=== PATIENT | female | born 1990 | race African-American/Black ===

== ENCOUNTER 2016-12-14 12:23 | Emergency (ER) | payer SELFPAY ==
--- NOTE | 2016-12-14 13:25 | ER Document Report ---
ED Medical Screen (RME) - General Chief Complaint: Rectal Pain Stated Complaint: STOMACH PAIN Time Seen by Provider: 12/14/16 13:19 Mode of Arrival: Ambulatory Information source: Patient Notes: 26 yo female c/o pelvic pain for 2 weeks, last week had external hemorrhoids with hard stool. This week has anal pressure with urge to have BM and can't have BM. Small bm balls last night. Eating more fast food than she used to. No vaginal discharge, dysuria, fever. LMP November 30. NKA, no meds. No surgeries. TRAVEL OUTSIDE OF THE [place] IN LAST 30 DAYS: No - Related Data Allergies/Adverse Reactions: No Known Allergies Allergy (Verified 05/11/15 09:27) Past Medical History Renal/ Medical History: Denies: Hx Peritoneal Dialysis - Immunizations Immunizations up to date: Yes Hx Diphtheria, Pertussis, Tetanus Vaccination: Yes Physical Exam - Vital signs Vitals: Temp Pulse Resp BP Pulse Ox 98.0 F 75 14 153/100 H 100 12/14/16 12:44 12/14/16 12:44 12/14/16 12:44 12/14/16 12:44 12/14/16 12:44 Course - Vital Signs Vital signs: Temp Pulse Resp BP Pulse Ox 98.0 F 75 14 153/100 H 100 12/14/16 12:44 12/14/16 12:44 12/14/16 12:44 12/14/16 12:44 12/14/16 12:44
[2016-12-14 13:48] VITALS: BP 140/98
[2016-12-14 13:55] LABS: ABSOLUTE LYMPHOCYTES (AUTO) 1.6 10^3/uL (0.5-4.7); ABSOLUTE MONOCYTES (AUTO) 0.4 10^3/uL (0.1-1.4); ABSOLUTE NEUT (AUTO) 2.6 10^3/uL (1.7-8.2); BASOPHILS % (AUTO) 0.8 % (0-2); EOSINOPHILS % (AUTO) 0.4 % (0-6); HEMATOCRIT 38.3 % (36.0-47.0); HEMOGLOBIN 12.1 g/dL (12.0-15.5); LYMPHOCYTES % (AUTO) 33.4 % (13-45); MEAN CORPUSCULAR HGB CONC 31.7 g/dL (32.0-36.0); MEAN CORPUSCULAR VOLUME 79 fl (80-97); MONOCYTES % (AUTO) 9.5 % (3-13); RED BLOOD COUNT 4.86 10^6/uL (3.72-5.28); RED CELL DISTRIBUTION WIDTH 14.3 % (11.5-14.0); SEGMENTED NEUTROPHILS % (AUTO) 55.9 % (42-78); WHITE BLOOD COUNT 4.7 10^3/uL (4.0-10.5)
[2016-12-14 13:58] LABS: APPEARANCE,URINE SLIGHTLY-CLOUDY; BILIRUBIN,URINE NEGATIVE (NEGATIVE); GLUCOSE, URINE NEGATIVE (NEGATIVE); KETONES,URINE 20 mg/dL (NEGATIVE); LEUKOCYTE ESTERASE,URINE NEGATIVE (NEGATIVE); NITRITE,URINE NEGATIVE (NEGATIVE); PROTEIN,URINE NEGATIVE (NEGATIVE); URINE SPECIFIC GRAVITY 1.026
[2016-12-14 14:14] LABS: ALANINE AMINOTRANSFERASE 25 U/L (9-52); ALBUMIN 4.5 g/dL (3.5-5.0); ALKALINE PHOSPHATASE 70 U/L (38-126); ANION GAP 12 (5-19); ASPARTATE AMINO TRANSFERASE 20 U/L (14-36); BILIRUBIN,DIRECT 0.3 mg/dL (0.0-0.4); BILIRUBIN,TOTAL 0.5 mg/dL (0.2-1.3); BLOOD UREA NITROGEN 8 mg/dL (7-20); CALCIUM 9.4 mg/dL (8.4-10.2); CARBON DIOXIDE 26 mmol/L (22-30); CHLORIDE 104 mmol/L (98-107); CREATININE RESULT 0.76 mg/dL (0.52-1.25); GLUCOSE 85 mg/dL (75-110); POTASSIUM 3.7 mmol/L (3.6-5.0); SODIUM 142.2 mmol/L (137-145); TOTAL PROTEIN 7.8 g/dL (6.3-8.2)
--- NOTE | 2016-12-14 15:09 | ER Document Report ---
ED GI/ - General Chief Complaint: Rectal Pain Stated Complaint: STOMACH PAIN Time Seen by Provider: 12/14/16 13:19 Mode of Arrival: Ambulatory Information source: Patient Notes: 26-year-old female who presents today stating around 2 weeks ago she had a "GI bug with some vomiting and diarrhea. She felt well until around 5 days ago when she started to feel some suprapubic and bilateral lower abdominal intermittent "cramping". She denies any aggravating or relieving factors. She denies any dysuria, missed menstrual periods, fevers, vomiting, or diarrhea. Patient is currently pain-free. Patient also states that she has had some "hemorrhoids" for many years since the of her child which was we exacerbated about 2 weeks ago. She denies any blood in her stool. TRAVEL OUTSIDE OF THE [place] IN LAST 30 DAYS: No - HPI Patient complains to provider of: Other - See above Onset: Other - See above Timing/Duration: Gradual Quality of pain: Achy Severity at maximum: Mild Severity in ED: None Pain Level: Denies Location: Other - See above Vaginal bleeding (Compared to normal period): None Sexual history: Active Associated symptoms: Other - See above Exacerbated by: Denies Relieved by: Denies Similar symptoms previously: No Recently seen / treated by doctor: No - Related Data Allergies/Adverse Reactions: No Known Allergies Allergy (Verified 12/14/16 13:29) Past Medical History - General Information source: Patient - Social History Smoking Status: Never Smoker Chew tobacco use (# tins/day): No Frequency of alcohol use: None Drug Abuse: None Family History: Reviewed & Not Pertinent, CVA, Malignancy Patient has suicidal ideation: No Patient has homicidal ideation: No Renal/ Medical History: Denies: Hx Peritoneal Dialysis - Immunizations Immunizations up to date: Yes Hx Diphtheria, Pertussis, Tetanus Vaccination: Yes Review of Systems - Review of Systems Constitutional: denies: Chills, Fever Respiratory: denies: Short of breath Gastrointestinal: denies: Diarrhea, Vomiting Genitourinary: denies: Dysuria Musculoskeletal: denies: Leg swelling Skin: Other - no hives. denies: Rash Neurological/Psychological: Other - no slurred speech -: Yes All other systems reviewed and negative Physical Exam - Vital signs Vitals: Temp Pulse Resp BP Pulse Ox 98.0 F 75 14 153/100 H 100 07/19/17 12:44 12/14/16 12:44 12/14/16 12:44 12/14/16 12:44 12/14/16 12:44 Notes: Reviewed vital signs and nursing note as charted by RN. CONSTITUTIONAL: Alert and oriented and responds appropriately to questions. Well -appearing; well-nourished HEAD: Normocephalic; atraumatic EYES: Sclerae non-icteric CARD: Regular rate and rhythm; no murmurs, no clicks, no rubs, no gallops; symmetric distal pulses RESP: Normal chest excursion without splinting or tachypnea; breath sounds clear and equal bilaterally; no wheezes, no rhonchi, no rales ABD/GI: Normal bowel sounds; non-distended; soft, non-tender currently to deep palpation of all 4 quadrants of the abdomen, no rebound, no guarding; no palpable organomegaly or masses GI/: Pelvic examination shows no external or internal lesions, no cervical motion tenderness, no adnexal masses or tenderness On rectal examination I do not detect any obvious thrombosed external hemorrhoids. No perirectal swelling or erythema BACK: The back appears normal and is non-tender to palpation, there is no CVA tenderness EXT: Normal ROM in all joints; non-tender to palpation; no cyanosis, no effusions, no edema SKIN: Normal color for age and race; warm; dry; good turgor; capillary refill < 2 seconds; no acute lesions noted NEURO: Moves all extremities equally; Motor and sensory function intact PSYCH: The patient's mood and manner are appropriate. Grooming and personal hygiene are appropriate. Course - Re-evaluation Re-evalutation: 12/14/16 15:08 Given the above history and physical examination we will order basic labs, urine analysis, test, perform a pelvic examination. I currently have an extremely low pretest probability for acute appendicitis, ovarian torsion, or other infectious intra-abdominal process at this time. 12/14/16 15:44 Belly labs, urinalysis, test, and pelvic exam labs as recorded. Patient still has no tenderness. I have provided strict return precautions as well as hemorrhoid instructions and follow-up with a possible general surgeon for assessment of the possible future hemorrhoidectomy given the patient's chronic intermittent hemorrhoids. - Vital Signs Vital signs: Temp Pulse Resp BP Pulse Ox 98.0 F 75 14 140/98 H 100 12/14/16 12:44 12/14/16 12:44 12/14/16 12:44 12/14/16 13:48 12/14/16 12:44 - Laboratory Result Diagrams: 12/14/16 13:35 12/14/16 13:35 Laboratory results interpreted by me: 12/14/16 12/14/16 13:35 13:35 MCV 79 L MCH 25.0 L MCHC 31.7 L RDW 14.3 H Urine Ketones 20 H Urine Urobilinogen 2.0 H Discharge - Discharge Clinical Impression: Pelvic pain Hemorrhoids Qualifiers: Hemorrhoid type: unspecified Qualified Code(s): K64.9 - Unspecified hemorrhoids Condition: Good Disposition: HOME, SELF-CARE Additional Instructions: Come back immediately for any return of pelvic pain, inability to urinate or defecate, fevers or vomiting, or any other acute problems. Referrals: BLANE CHILDS MD [ACTIVE STAFF] - Follow up as needed
[2016-12-14 15:24] LABS: CHLAM PCR NOT DETECTED (NOT DETECT)
== END 2016-12-14 16:30 | disposition home or self-care (01) ==
LOC: ER 12:23
DX: K64.9 Unspecified hemorrhoids (principal); R10.2 Pelvic and perineal pain; K62.89 Other specified diseases of anus and rectum; R11.10 Vomiting, unspecified; R19.7 Diarrhea, unspecified; R10.31 Right lower quadrant pain; R10.32 Left lower quadrant pain
CPT/HCPCS: 36415; 80053; 81001; 84703; 85025; 87210; 87491; 87591; 99283

== ENCOUNTER → 2017-01-20 | Outpatient (CLI) | payer BC ==
[2017-01-20 16:45] LABS: ABSOLUTE MONOCYTES (AUTO) 0.3 10^3/uL (0.1-1.4); ABSOLUTE NEUT (AUTO) 1.6 10^3/uL (1.7-8.2); BASOPHILS % (AUTO) 0.7 % (0-2); EOSINOPHILS % (AUTO) 0.9 % (0-6); HEMOGLOBIN 10.7 g/dL (12.0-15.5); HGB HCT DIFFERENCE -0.9; LYMPHOCYTES % (AUTO) 32.8 % (13-45); MEAN CORPUSCULAR HEMOGLOBIN 25.5 pg (27.0-33.4); MEAN CORPUSCULAR HGB CONC 32.5 g/dL (32.0-36.0); MEAN CORPUSCULAR VOLUME 79 fl (80-97); RED CELL DISTRIBUTION WIDTH 14.9 % (11.5-14.0); SEGMENTED NEUTROPHILS % (AUTO) 55.6 % (42-78); WHITE BLOOD COUNT 2.9 10^3/uL (4.0-10.5)
[2017-01-20 17:11] LABS: ALANINE AMINOTRANSFERASE 21 U/L (9-52); ALKALINE PHOSPHATASE 68 U/L (38-126); ANION GAP 8 (5-19); ASPARTATE AMINO TRANSFERASE 16 U/L (14-36); BILIRUBIN,DIRECT 0.3 mg/dL (0.0-0.4); BILIRUBIN,TOTAL 0.3 mg/dL (0.2-1.3); BLOOD UREA NITROGEN 12 mg/dL (7-20); CALCIUM 9.3 mg/dL (8.4-10.2); CARBON DIOXIDE 28 mmol/L (22-30); CHLORIDE 107 mmol/L (98-107); CREATININE RESULT 0.81 mg/dL (0.52-1.25); GLUCOSE 85 mg/dL (75-110); TOTAL PROTEIN 6.8 g/dL (6.3-8.2)
[2017-01-20 17:26] LABS: ERYTHROCYTE SEDIMENTATION RATE 20 mm/hr (0-20)
== END ==
LOC: OD 15:07
PROVIDERS: ATTEND Physician Assistant
DX: G43.101 Migraine with aura, not intractable, with status migrainosus (principal)
CPT/HCPCS: 36415; 80053; 85025; 85652

== ENCOUNTER → 2017-01-24 | Outpatient (CLI) | payer BC ==
--- NOTE | 2017-01-24 08:58 | RADIOLOGY REPORT (SQ) ---
EXAM DESCRIPTION: CT HEAD WITHOUT COMPLETED DATE/TIME: 01/24/2017 8:36 am REASON FOR STUDY: MIGRAINE WITH AURA, NOT INTRACTABLE, WITH STATUS MIGRAINOSUS (G43.101) G43.101 HI GRAINE WITH AURA, NOT INTRACTABLE, WITH STATUS NAYA COMPARISON: None. TECHNIQUE: Axial images acquired through the brain without intravenous contrast. Images reviewed wi th bone, brain and subdural windows. Images stored on PACS. All CT scanners at this facility use dose modulation, iterative reconstruction, and/or weight based d osing when appropriate to reduce radiation dose to as low as reasonably achievable (ALARA). [facility]: Dose Right [facility]: CareDose [facility]: Dose Right [facility]: Teradose 4D [facility]: Smart Simply Zesty RADIATION DOSE: Up-to-date CT equipment and radiation dose reduction techniques were employed. CTDIv ol: 49.0 mGy. DLP: 881 mGy-cm. mGy. LIMITATIONS: None. FINDINGS: VENTRICLES: Normal size and contour. CEREBRUM: No masses. No hemorrhage. No midline shift. No evidence for acute infarction. Normal gra y/white matter differentiation. No areas of low density in the white matter. CEREBELLUM: No masses. No hemorrhage. No alteration of density. No evidence for acute infarction. EXTRAAXIAL SPACES: No fluid collections. No masses. ORBITS AND GLOBE: No intra- or extraconal masses. Normal contour of globe without masses. CALVARIUM: No fracture. PARANASAL SINUSES: No fluid or mucosal thickening. SOFT TISSUES: No mass or hematoma. OTHER: No other significant finding. IMPRESSION: NORMAL BRAIN CT WITHOUT CONTRAST. COMMENT: Quality ID # [id number]: Final reports with documentation of one or more dose reduction techniques (e.g., Automated exposure control, adjustment of the mA and/or kV according to patient size, use of iterative reconstruction technique) TECHNICAL DOCUMENTATION: JOB ID: [id number] [employer]- All Rights Reserved
== END ==
LOC: RAD 08:26
PROVIDERS: ATTEND Physician Assistant
DX: G43.101 Migraine with aura, not intractable, with status migrainosus (principal)
CPT/HCPCS: 70450

== ENCOUNTER 2017-08-14 13:30 | Emergency (ER) | payer SELFPAY ==
--- NOTE | 2017-08-14 14:17 | ER Document Report ---
ED Extremity Problem, Lower - General Chief Complaint: Knee Pain Stated Complaint: KNEE SWELLING Time Seen by Provider: 08/14/17 14:07 Mode of Arrival: Ambulatory Information source: Patient TRAVEL OUTSIDE OF THE [place] IN LAST 30 DAYS: No - HPI Patient complains to provider of: Injury, Pain Location: Knee Occurred: Other - 2 MONTHS Where: Home Notes: Patient is here with complaints of right knee pain. She states that she accidentally bumped her anterior right knee on a door jam when walking through a door approximately 2 months ago. She now has a small mobile lump just above her right patella that is painful when she touches the area as well as when she flexes her knee. She denies any numbness, tingling, weakness. No fever. No redness. She denies any chest pain or shortness of breath. No nausea, vomiting , diarrhea. She denies any other complaints at this time. - Related Data Allergies/Adverse Reactions: No Known Allergies Allergy (Verified 08/14/17 13:44) Past Medical History - Social History Smoking Status: Unknown if Ever Smoked Family History: Reviewed & Not Pertinent, CVA, Malignancy Renal/ Medical History: Denies: Hx Peritoneal Dialysis - Immunizations Immunizations up to date: Yes Hx Diphtheria, Pertussis, Tetanus Vaccination: Yes Review of Systems - Review of Systems -: Yes All other systems reviewed and negative Physical Exam - Vital signs Vitals: Temp Pulse Resp BP Pulse Ox 97.9 F 69 16 128/81 H 100 08/14/17 13:49 08/14/17 13:49 08/14/17 13:49 08/14/17 13:49 08/14/17 13:49 - Notes Notes: GENERAL: alert, cooperative, nontoxic, no distress. HEAD: normocephalic, atraumatic EYES: conjunctiva pink without discharge, no external redness or swelling. EARS: no external swelling, no external redness NOSE: atraumatic, no external swelling MOUTH/THROAT: mucous membranes moist and pink NECK: soft, supple, full range of motion, no meningismus. CHEST: no distress, lungs clear and equal throughout. No wheezing, rales, rhonchi. CARDIAC: regular rate and rhythm, no murmur, normal capillary refill, normal pulses. BACK: full range of motion, no CVA tenderness. EXTREMITIES: full range of motion of all extremities. No redness, no swelling. Small mobile nodule just above the right patella that slightly painful to palpation. Full range of motion of the knee. No ligament instability. Anterior posterior drawer are unremarkable. Normal neurovascular exam distally. Hip and ankle are unremarkable. NEURO: alert and oriented 3, no focal deficits, full range of motion of all extremities. PYSCH: appropriate mood, affect. Patient is cooperative. SKIN: pink, warm, dry, no rash. Course - Re-evaluation Re-evalutation: 08/14/17 15:14 Patient is nontoxic appearing with stable vitals. The patient's had right knee pain after hitting her knee several months ago. She does have a small mobile nodule just above her patella. X-rays of the knee show no acute bony abnormality. No calcification in the area of this mobile lesion on her knee. No redness or signs of infection. She is a normal neurovascular exam. At this point the patient will be discharged home with a prescription for Naprosyn and a referral to orthopedics. She is instructed to follow-up with them at the next available appointment, sooner for worsening pain, high fever, redness, numbness, tingling, weakness, any further concerns. The patient is noted to have elevated blood pressure during today's emergency department visit. The patient was informed of this finding. The patient was instructed that this may be related to pre-hypertension and requires further evaluation with a primary care provider. The patient has no hypertensive symptoms at this time. The patient's emergency department workup and current diagnosis were explained to the patient and or family. Follow-up instructions were provided. Medications if prescribed were discussed. Instructions for when to return to the emergency department including specific worrisome symptoms were discussed with the patient and/or family. - Vital Signs Vital signs: Temp Pulse Resp BP Pulse Ox 97.9 F 69 16 128/81 H 100 08/14/17 13:49 08/14/17 13:49 08/14/17 13:49 08/14/17 13:49 08/14/17 13:49 Discharge - Discharge Clinical Impression: Right knee pain Qualifiers: Chronicity: chronic Qualified Code(s): M25.561 - Pain in right knee; G89.29 - Other chronic pain; G89.29 - Other chronic pain Condition: Stable Disposition: HOME, SELF-CARE Instructions: Ice & Elevation ([facility]), Sprained Knee ([facility]) Additional Instructions: Take medications as prescribed. Follow-up with orthopedics at the next available appointment. Follow-up sooner for worsening pain, fever, redness, swelling, any further concerns. Your blood pressure was elevated during today's visit. Have this rechecked with your doctor. Prescriptions: Naproxen [Naprosyn] 500 mg PO BID #20 tablet Forms: Elevated Blood Pressure, Smoking Cessation Education Referrals: HYUN SCALES MD [Primary Care Provider] - Follow up as needed FELIPA AGGARWAL MD [ACTIVE STAFF] - Follow up as needed
--- NOTE | 2017-08-14 14:55 | RADIOLOGY REPORT (SQ) ---
EXAM DESCRIPTION: KNEE RIGHT 3 VIEWS COMPLETED DATE/TIME: 08/14/2017 2:44 pm REASON FOR STUDY: pain, swelling COMPARISON: None. NUMBER OF VIEWS: Three views. TECHNIQUE: AP, lateral, and sunrise view of the patella radiographic images acquired of the right kn ee. LIMITATIONS: None. FINDINGS: MINERALIZATION: Normal. BONES: No acute fracture or dislocation. No worrisome bone lesions. JOINT: Mild narrowing at the patellofemoral compartment laterally. No effusion. SOFT TISSUES: No soft tissue swelling. No radio-opaque foreign body. OTHER: No other significant finding. IMPRESSION: 1 No acute osseous findings. 2. Mild narrowing at the patellofemoral compartment laterally. TECHNICAL DOCUMENTATION: JOB ID: [id number] [employer]- All Rights Reserved Reading location - IP/workstation name: [email or web address]
[2017-08-14 16:07] VITALS: BP 135/79
== END 2017-08-14 15:30 | disposition home or self-care (01) ==
LOC: ER 13:30
DX: M25.561 Pain in right knee (principal); G89.29 Other chronic pain; R22.41 Localized swelling, mass and lump, right lower limb; W22.09XA Striking against other stationary object, initial encounter; R03.0 Elevated blood-pressure reading, without diagnosis of hypertension
CPT/HCPCS: 99283

== ENCOUNTER 2017-08-23 06:17 | Emergency (ER) | payer SELFPAY ==
[2017-08-23 06:25] VITALS: BP 133/87
--- NOTE | 2017-08-23 07:58 | ER Document Report ---
ED ENT - General Chief Complaint: Sore Throat Stated Complaint: THROAT SWOLLEN Time Seen by Provider: 08/23/17 07:51 Mode of Arrival: Ambulatory TRAVEL OUTSIDE OF THE [place] IN LAST 30 DAYS: No - HPI Patient complains to provider of: Throat problem Onset: Yesterday Onset/Duration: Gradual Quality of pain: Achy, Dull Severity: Moderate Pain Level: 3 Context: denies: Allergies, Injury, Recent Illness, Travel, Other Location of pain: No: Ears, Face, Jaw, Neck, Nose, Sinus, Throat, Tooth, Other Associated symptoms: denies: None, Barotrauma, Broken tooth, Chills, Congestion , Cough, Dental pain, Dental caries, Difficulty swallowing, Dizziness, Drooling , Ear pain, Ear drainage, Ear trauma, Face swelling, Fever, Foreign body, Hearing loss, Headache, Hoarse voice, Jaw pain, Jaw swelling, Motion sickness, Neck pain, Nose bleed, Runny nose, Sinus pain, Sinus drainage, Sore throat, Stiff neck, Swollen glands, Tinnitus, Vertigo, Other - Related Data Allergies/Adverse Reactions: No Known Allergies Allergy (Verified 08/23/17 06:19) Past Medical History - General Information source: Patient - Social History Smoking Status: Never Smoker Cigarette use (# per day): No Chew tobacco use (# tins/day): No Frequency of alcohol use: Rare Drug Abuse: None Lives with: Family Family History: Reviewed & Not Pertinent, CVA, Malignancy - Medical History Medical History: Negative - Past Medical History Cardiac Medical History: Denies: None, Hx Atrial Fibrillation, Hx Congestive Heart Failure, Hx Coronary Artery Disease, Hx DVT, Hx Heart Attack, Hx Hypercholesterolemia, Hx Hypertension, Hx Peripheral Vascular Disease, Hx Pulmonary Embolism, Hx Heart Murmur, Other Pulmonary Medical History: Denies: None, Hx Asthma, Hx Bronchitis, Hx COPD, Hx Pneumonia, Hx Intubation , Hx Respiratory Failure, Hx Sleep Apnea, Hx Tuberculosis, Other EENT Medical History: Denies: None, Eyes, Ears, Nose, Throat, Other Neurological Medical History: Denies: None, Hx Cerebrovascular Accident, Hx Migraine, Hx Seizures, Other Endocrine Medical History: Denies: None, Hx Diabetes Mellitus Type 1, Hx Diabetes Mellitus Type 2, Hx Graves' Disease, Hx Hyperthyroidism, Hx Hypothyroidism, Other Renal/ Medical History: Denies: Hx Peritoneal Dialysis Past Surgical History: Reports: Hx Cardiac Surgery, Hx Gynecologic Surgery - Immunizations Immunizations up to date: Yes Hx Diphtheria, Pertussis, Tetanus Vaccination: Yes Review of Systems - Review of Systems Constitutional: Chills, Fever. denies: No symptoms reported, See HPI, Diaphoresis, Malaise, Weakness, Other, Weight gain, Weight loss, Recent illness EENT: Throat swelling, Mouth pain. denies: No symptoms reported, See HPI, Eye pain, Eye discharge, Blurred vision, Tearing, Double vision, Ear pain, Ear discharge, Nose pain, Nose congestion, Nose discharge, Sinus pressure, Sinus discharge, Throat pain, Difficulty swallowing, Mouth swelling, Dental problem, Vertigo, Other Cardiovascular: denies: No symptoms reported, See HPI, Chest pain, Palpitations , Heart racing, Orthopnea, Dyspnea, Syncope, Dizziness, Lightheaded, Edema, Other, Paroxysmal Nocturnal Dysp Respiratory: denies: No symptoms reported, See HPI, Cough, Hurts to breathe, Hemoptysis, Short of breath, Sputum, Stridor, Wheezing, Other Gastrointestinal: denies: No symptoms reported, See HPI, Abdomen distended, Abdominal pain, Diarrhea, Nausea, Vomiting, Constipation, Blood streaked bowels , Poor appetite, Poor fluid intake, Blood in vomit, Black stools, Rectal bleeding, Last bowel movement, Fecal incontinence, Other Genitourinary: denies: No symptoms reported, See HPI, Burning, Dysuria, Discharge, Frequency, Flank pain, Hematuria, Incontinence, Pain, Urgency, Retention, Other Female Genitourinary: denies: No symptoms reported, See HPI, Last menstrual period, , Post menopausal, Heavy/abnormal periods, Irregular period, Vaginal bleeding, Vaginal discharge, Vaginal odor, Painful intercourse, Other Musculoskeletal: denies: No symptoms reported, See HPI, Back pain, Gout, Joint pain, Joint swelling, Muscle pain, Muscle stiffness, Neck pain, Deformity, Leg swelling, Ankle swelling, Other Skin: denies: No symptoms reported, See HPI, Change in color, Change in hair/ nails, Dryness, Lesions, Lumps, Rash, Other Hematologic/Lymphatic: denies: No symptoms reported, See HPI, Anemia, Blood clots, Easy bleeding, Easy bruising, Enlarged lymph nodes, Swollen glands, Other Physical Exam - Vital signs Vitals: Temp Pulse Resp BP Pulse Ox 97.8 F 84 20 133/87 H 100 08/23/17 06:22 08/23/17 06:22 08/23/17 06:22 08/23/17 06:22 08/23/17 06:22 - General General appearance: Appears well - HEENT Head: Normocephalic, Atraumatic. No: Abrasions, Sullivan's sign, Ecchymosis, Open wounds, Racoon's eyes, Tenderness, Other Eyes: Normal. No: Pale conjunctiva, Periorbital ecchymosis, Periorbital edema, Scleral icterus, Tears, Other Conjunctiva: Normal. No: Icteric, Injected, Purulent discharge, Other Cornea: Normal. No: Corneal abrasion, Corneal ulcer, Dendrite, Embedded foreign body, Flourescein stain uptake, Opacified, Superficial foreign body, Other Pupils: PERRL. No: Dilated, Fixed, Pinpoint Ears: Normal External canal: Normal Tympanic membrane: Normal Sinus: Normal Nasal: Normal Mouth/Lips: Normal Mucous membranes: Normal Pharynx: Erythema. No: Normal, Blood in hypopharynx, Exudate, Peritonsillar abscess, Post nasal drainage, Retropharyngeal abscess, Tonsillar hypertrophy, Uvular edema, Potential airway comprom., Other - Respiratory Respiratory status: No respiratory distress Chest status: Nontender Breath sounds: Normal Chest palpation: Normal - Cardiovascular Rhythm: Regular Heart sounds: Normal auscultation Murmur: No - Abdominal Inspection: Normal Distension: No distension Bowel sounds: Normal Tenderness: Nontender Organomegaly: No organomegaly Course - Vital Signs Vital signs: Temp Pulse Resp BP Pulse Ox 97.8 F 84 20 133/87 H 100 08/23/17 06:22 08/23/17 06:22 08/23/17 06:22 08/23/17 06:22 08/23/17 06:22 Discharge - Discharge Clinical Impression: Pharyngitis Qualifiers: Pharyngitis/tonsillitis etiology: other specified organisms Qualified Code(s): J02.8 - Acute pharyngitis due to other specified organisms Condition: Fair Disposition: HOME, SELF-CARE Instructions: Sore Throat ([facility]) Prescriptions: Amoxicillin 1 tab PO TID #30 tab
== END 2017-08-23 08:05 | disposition home or self-care (01) ==
LOC: ER 06:17
DX: J02.8 Acute pharyngitis due to other specified organisms (principal)
CPT/HCPCS: 87070; 87077; 87880; 99283

== ENCOUNTER 2017-11-07 10:08 | Emergency (ER) | payer OTHER ==
[2017-11-07 10:17] VITALS: BP 139/86
[2017-11-07] MEDS ORDERED: DEXAMETHASONE SOD PHOS INJ 10 MG/1 ML VIAL IM ONE (10:31)
--- NOTE | 2017-11-07 10:40 | ER Document Report ---
HPI - HPI Pain Level: 3 Notes: Patient is a 26-year-old female who presents to the ED complaining of nasal congestion/discharge, dry nonproductive cough, irritated throat, loss of voice 1 day. Patient states that she is still eating and drinking without difficulties, but does have a decreased p.o. intake. Pt left work today bc she works at a [employer] and cannot speak very loudly. She is still urinating normally having normal bowel movements. She denies any significant past medical history including cardiopulmonary history and immunocompromised conditions. Patient denies IV drug use. Pt does smoke. Patient requesting work note. Denies any headache, neck pain, chest pain, palpitations, syncope, shortness of breath, wheeze, dyspnea, abdominal pain, nausea/vomiting/diarrhea, urinary retention, dysuria, hematuria, or rash. - ROS Systems Reviewed and Negative: Yes All other systems reviewed and negative - REPRODUCTIVE Reproductive: DENIES: : Past Medical History - Social History Smoking Status: Never Smoker Family History: Reviewed & Not Pertinent, CVA, Malignancy - Past Medical History Cardiac Medical History: Denies: Hx Atrial Fibrillation, Hx Congestive Heart Failure, Hx Coronary Artery Disease, Hx DVT, Hx Heart Attack, Hx Hypercholesterolemia, Hx Hypertension, Hx Peripheral Vascular Disease, Hx Pulmonary Embolism, Hx Heart Murmur Pulmonary Medical History: Denies: Hx Asthma, Hx Bronchitis, Hx COPD, Hx Pneumonia, Hx Intubation, Hx Respiratory Failure, Hx Sleep Apnea, Hx Tuberculosis Neurological Medical History: Denies: Hx Cerebrovascular Accident, Hx Migraine, Hx Seizures Endocrine Medical History: Denies: Hx Diabetes Mellitus Type 1, Hx Diabetes Mellitus Type 2, Hx Graves' Disease, Hx Hyperthyroidism, Hx Hypothyroidism Renal/ Medical History: Denies: Hx Peritoneal Dialysis Past Surgical History: Reports: Hx Cardiac Surgery, Hx Gynecologic Surgery - Immunizations Immunizations up to date: Yes Hx Diphtheria, Pertussis, Tetanus Vaccination: Yes Vertical Provider Document - CONSTITUTIONAL Agree With Documented VS: Yes Notes: PHYSICAL EXAMINATION: GENERAL: Well-appearing, well-nourished and in no acute distress. A&Ox4. Answers questions appropriately. Moves comfortably w/o notable distress HEAD: Atraumatic, normocephalic. EYES: Pupils equal round and reactive to light, extraocular movements intact, sclera anicteric, conjunctiva are normal. ENT: EAC clear b/l. TM's intact b/l without erythema, fluid, or perforation. Nares patent and with clear discharge. oropharynx no erythema without exudates. No tonsilar hypertrophy without erythema or exudate. No palatine shift. Uvula midline. No tongue protrusion. No drooling or airway compromise. + hoarseness to her voice. Moist mucous membranes. No sinus tenderness. NECK: Normal range of motion, supple without lymphadenopathy. No rigidity/ meningismus. LUNGS: Breath sounds clear to auscultation bilaterally and equal. No wheezes rales or rhonchi. No retractions HEART: Regular rate and rhythm without murmurs, rubs, gallops. ABDOMEN: Soft, nontender, nondistended abdomen. No guarding, no rebound. No masses appreciated. Normal bowel sounds present. No CVA tenderness bilaterally. No hepatosplenomegaly. NEUROLOGICAL: Normal speech, normal gait. PSYCH: Normal mood, normal affect. SKIN: Warm, Dry, normal turgor, no rashes or lesions noted. - INFECTION CONTROL TRAVEL OUTSIDE OF THE [place] IN LAST 30 DAYS: No Course - Re-evaluation Re-evalutation: 11/07/17 10:38 Patient is an afebrile, well-hydrated, 21-year-old female who presents to the ED with acute URI, suspect viral. Vitals are stable. PE is otherwise unremarkable. No labs or imaging warranted at this time based on H&P. Pt does not meet CENTOR criteria for strep testing. Patient has no significant cardiopulmonary or immunocompromised medical conditions. Patient's lungs are clear to auscultation bilaterally without tachycardia, hypoxia, or tachypnea. Patient is tolerating p.o. without any difficulties. Low suspicion for any meningitis, sepsis, peritonsillar/pharyngeal abscess, respiratory compromise, severe dehydration, or other emergent systemic condition at this time. Patient is aware this condition can change from initial presentation and she needs to monitor symptoms closely. Decadron IM today. Conservative measures otherwise for symptoms. Recheck with your PCM in 3-5 days. Return to the ED with any worsening/concerning symptoms otherwise as reviewed in discharge. Patient is in agreement. - Vital Signs Vital signs: Temp Pulse Resp BP Pulse Ox 98.4 F 81 16 139/86 H 100 11/07/17 10:15 11/07/17 10:15 11/07/17 10:15 11/07/17 10:11/07/17 10:15 Discharge - Discharge Clinical Impression: Acute URI, Acute laryngitis Condition: Stable Disposition: HOME, SELF-CARE Instructions: Laryngitis ([facility]), Upper Respiratory Illness ([facility]) Additional Instructions: Maintain adequate fluid intake Take meds as directed tylenol/ibuprofen as needed over the counter cold medication as needed for symptoms Humidified air may help Wash your hands regularly Wear a mask when coughing F/u: with your PCM in 3-5 days for a recheck Return to the ED with any fever, worsening pain, chest pain, palpitations, syncope, worsening KENNEDY, neck pain/stiffness, shortness of breath, wheezing, drooling, trouble swallowing/breathing, abdominal pain, n/v/d, rash, or worsening/concerning symptoms otherwise. Forms: Elevated Blood Pressure, Smoking Cessation Education, Return to Work Referrals: [facility] [Provider Group] - Follow up as needed [facility] [Provider Group] - Follow up as needed
== END 2017-11-07 10:58 | disposition home or self-care (01) ==
LOC: ER 10:08
DX: J06.9 Acute upper respiratory infection, unspecified (principal); J04.0 Acute laryngitis; R09.81 Nasal congestion
CPT/HCPCS: 99282; 96372; J1100

== ENCOUNTER → 2018-06-08 | Outpatient (CLI) | payer BC ==
--- NOTE | 2018-06-08 11:01 | RADIOLOGY REPORT (SQ) ---
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 TECHNIQUE: Dynamic and static thomas-scale images acquired of the thyroid gland. Selected additional c olor/power Doppler images recorded. All images stored to PACS. LIMITATIONS: None. FINDINGS: RIGHT LOBE: 1.5 x 2.2 x 5.8 cm. Heterogeneous echotexture. No cystic or solid masses. LEFT LOBE: 1.5 x 1.9 x 4.3 cm. Heterogeneous echotexture. No cystic or solid masses. ISTHMUS: Normal size. Heterogeneous echotexture. No cystic or solid masses. OTHER: Doppler imaging demonstrates general increased vascularity throughout. IMPRESSION: MILD THYROID ENLARGEMENT WITH HETEROGENOUS ECHOTEXTURE AND HYPERVASCULARITY. SUSPICIOUS FOR GENERALIZED THYROIDITIS. NO FOCAL NODULES. TECHNICAL DOCUMENTATION: JOB ID: [id number] [employer]- All Rights Reserved Reading location - IP/workstation name: [email or web address]
== END ==
LOC: RAD 09:22
PROVIDERS: ATTEND Physician Assistant
DX: E01.0 Iodine-deficiency related diffuse (endemic) goiter (principal)
CPT/HCPCS: 76536

== ENCOUNTER → 2018-07-24 | Outpatient (CLI) | payer SELFPAY ==
[2018-07-24 13:05] LABS: ABSOLUTE LYMPHOCYTES (AUTO) 1.2 10^3/uL (0.5-4.7); ABSOLUTE MONOCYTES (AUTO) 0.3 10^3/uL (0.1-1.4); ABSOLUTE NEUT (AUTO) 1.2 10^3/uL (1.7-8.2); BASOPHILS % (AUTO) 0.6 % (0-2); EOSINOPHILS % (AUTO) 1.5 % (0-6); HEMATOCRIT 33.3 % (36.0-47.0); LYMPHOCYTES % (AUTO) 43.4 % (13-45); MEAN CORPUSCULAR HEMOGLOBIN 25.8 pg (27.0-33.4); MEAN CORPUSCULAR HGB CONC 32.9 g/dL (32.0-36.0); MEAN CORPUSCULAR VOLUME 79 fl (80-97); MONOCYTES % (AUTO) 10.6 % (3-13); PLATELET COUNT 184 10^3/uL (150-450); RED BLOOD COUNT 4.24 10^6/uL (3.72-5.28); RED CELL DISTRIBUTION WIDTH 13.9 % (11.5-14.0); SEGMENTED NEUTROPHILS % (AUTO) 43.9 % (42-78); TOTAL CELLS COUNTED % (AUTO) 100 %; WHITE BLOOD COUNT 2.8 10^3/uL (4.0-10.5)
[2018-07-24 13:31] LABS: ALANINE AMINOTRANSFERASE 14 U/L (9-52); ALBUMIN 4.3 g/dL (3.5-5.0); ALKALINE PHOSPHATASE 49 U/L (38-126); ANION GAP 7 (5-19); ASPARTATE AMINO TRANSFERASE 16 U/L (14-36); BILIRUBIN,DIRECT 0.2 mg/dL (0.0-0.4); BILIRUBIN,TOTAL 0.3 mg/dL (0.2-1.3); BLOOD UREA NITROGEN 15 mg/dL (7-20); CALCIUM 9.4 mg/dL (8.4-10.2); CARBON DIOXIDE 29 mmol/L (22-30); CHLORIDE 107 mmol/L (98-107); GLUCOSE 93 mg/dL (75-110); POTASSIUM 4.3 mmol/L (3.6-5.0); SODIUM 142.8 mmol/L (137-145); TOTAL PROTEIN 6.9 g/dL (6.3-8.2)
== END ==
LOC: OD 12:03
PROVIDERS: ATTEND Physician Assistant
DX: R53.83 Other fatigue (principal); E01.0 Iodine-deficiency related diffuse (endemic) goiter; N64.3 Galactorrhea not associated with childbirth
CPT/HCPCS: 36415; 80053; 84146; 85025

== ENCOUNTER → 2018-08-23 | Outpatient (CLI) | payer BC ==
--- NOTE | 2018-08-24 08:26 | RADIOLOGY REPORT (SQ) ---
EXAM DESCRIPTION: MRI HEAD WITHOUT COMPLETED DATE/TIME: 08/23/2018 5:31 pm REASON FOR STUDY: G44.89 OTHER HEADACHE SYNDROME G44.89 OTHER HEADACHE SYNDROME COMPARISON: CT brain 01/24/2017 TECHNIQUE: Multiplanar imaging includes non-contrasted T1, T2, FLAIR, and diffusion with ADC map seq uences. Additional thin section T2 and pre and postcontrast T1 weighted images, coronal and sagittal imaging through the pituitary gland was performed. Images stored on PACS. LIMITATIONS: None. FINDINGS: PITUITARY FOSSA: Pituitary gland is overall normal in size, 6 mm craniocaudad by 11 mm AP x 14 mm transverse. On coronal postcontrast T1 image 12/05, a 3 mm focus of decreased contrast enhanc ement in the rightward aspect at no hypothesis is present. This could represent a small pituitary ad enoma. Midline pituitary infundibulum. Normal suprasellar cistern and optic chiasm. Normal caverno us sinuses. CSF SPACES: Normal in size and contour. No hemorrhage. CEREBRUM: Sulci and gyri normal in size and contour. Normal white matter signal on FLAIR imaging. No evidence of hemorrhage, mass, or extraaxial fluid collection. POSTERIOR FOSSA: No signal alteration. No hemorrhage. No edema, masses or mass effect. Internal rekha tory canals, cerebello-pontine angles, mastoids normal. DIFFUSION IMAGING: Negative for acute or sub-acute infarction. ORBITS: No masses. Globes normal. PARANASAL SINUSES: No fluid levels. Mucosa normal. OTHER: No other significant finding. IMPRESSION: Question 3 mm microadenoma in the rightward aspect, anterior lobe pituitary gland. Otherwise unremarkable MRI brain without and with contrast EVIDENCE OF ACUTE STROKE: NO. TECHNICAL DOCUMENTATION: JOB ID: [id number] [employer]- All Rights Reserved Reading location - IP/workstation name: [email or web address]
== END ==
LOC: RAD 16:41
PROVIDERS: ATTEND Physician Assistant
DX: G44.89 Other headache syndrome (principal)
CPT/HCPCS: 70551

== ENCOUNTER 2018-10-30 21:59 | Emergency (ER) | payer BC ==
--- NOTE | 2018-10-31 01:41 | ER Document Report ---
HPI - HPI Time Seen by Provider: 10/31/18 01:29 Pain Level: 4 Context: Patient is a 28-year-old female that comes to the emergency department for chief complaint of hemorrhoid. The area is not bleeding but it is painful. She states she has had these intermittently for a while, today she noticed it to be worse than usual. She states she still was able to have a normal bowel movement with out difficulty but some pain. She denies being constipated. She denies fever/chills, abdominal pain, or any other symptoms at this time. She states she was told first told about hemorrhoids during her previous . - REPRODUCTIVE Reproductive: DENIES: : Past Medical History - General Information source: Patient - Social History Smoking Status: Never Smoker Frequency of alcohol use: None Drug Abuse: None Lives with: Family Family History: Reviewed & Not Pertinent, CVA, Malignancy - Past Medical History Cardiac Medical History: Denies: Hx Atrial Fibrillation, Hx Congestive Heart Failure, Hx Coronary Artery Disease, Hx DVT, Hx Heart Attack, Hx Hypercholesterolemia, Hx Hypertension, Hx Peripheral Vascular Disease, Hx Pulmonary Embolism, Hx Heart Murmur Pulmonary Medical History: Denies: Hx Asthma, Hx Bronchitis, Hx COPD, Hx Pneumonia, Hx Intubation, Hx Respiratory Failure, Hx Sleep Apnea, Hx Tuberculosis Neurological Medical History: Denies: Hx Cerebrovascular Accident, Hx Migraine, Hx Seizures Endocrine Medical History: Denies: Hx Diabetes Mellitus Type 1, Hx Diabetes Mellitus Type 2, Hx Graves' Disease, Hx Hyperthyroidism, Hx Hypothyroidism Renal/ Medical History: Denies: Hx Peritoneal Dialysis Past Surgical History: Reports: Hx Cardiac Surgery, Hx Gynecologic Surgery - Immunizations Immunizations up to date: Yes Hx Diphtheria, Pertussis, Tetanus Vaccination: Yes Vertical Provider Document - CONSTITUTIONAL General Appearance: WD/WN, No Apparent Distress - INFECTION CONTROL TRAVEL OUTSIDE OF THE [place] IN LAST 30 DAYS: No - HEENT HEENT: Atraumatic, Normocephalic - NECK Neck: Normal Inspection - RESPIRATORY Respiratory: Breath Sounds Normal, No Respiratory Distress - CARDIOVASCULAR Cardiovascular: Regular Rate, Regular Rhythm - GI/ABDOMEN Gastrointestinal: Abdomen Soft, Abdomen Non-Tender - REPRODUCTIVE Notes: Rectal exam performed with Flores HOPPER at bedside. This shows what appears to be a large prolapsed hemorrhoids without significant swelling or pain. There is no bleeding. When these are reduced they almost immediately re-prolapse. No induration, fluctuance, or other abnormality is noted. Course - Re-evaluation Re-evalutation: Exam does show large prolapsed hemorrhoids. There is no bleeding, there is no sign of infection, exam is unremarkable otherwise. Patient still having bowel movements without difficulty. Patient will be provided with suppository medication, continue to use Tucks (she already has these), and she will be referred to surgery for close follow-up. Explained to patient that she most likely would need surgery because of the advanced stage of these hemorrhoids. I did provide her with pain medication for sleeping when asked, also placed on stool softener. Discussed return precautions details. Patient states understanding and agreement. Discharge - Discharge Clinical Impression: Acute hemorrhoid Condition: Stable Disposition: HOME, SELF-CARE Instructions: Oral Narcotic Medication ([facility]) Additional Instructions: The hemorrhoid is large and will likely need treatment for this to resolve. I do recommend the suppositories, take the pain medication if needed (i.e. to sleep), make sure you use the stool softener to avoid constipation. Continue the Tucks, avoid any straining. Call the clinic later today to set up close follow-up. Return if you worsen including severe pain, fever, bleeding that will not stop, or any other concerning symptoms. Prescriptions: Docusate Sodium [Colace 100 mg Capsule] 100 mg PO ASDIR PRN #30 capsule PRN Reason: Oxycodone HCl/Acetaminophen [Percocet 5-325 mg Tablet] 1 - 2 tab PO Q4H PRN #15 tablet PRN Reason: Phenylephrine HCl [Anusol Suppository] 1 supp.rect [place] BID #28 supp.rect Forms: Return to Work Referrals: [facility] [Provider Group] - 10/31/18
[2018-10-31] MEDS ORDERED: HYDROCODONE/ACETAMINOPHEN 5-325 MG (6 TAB/ER DISP) PO PRN (01:48)
== END 2018-10-31 02:08 | disposition home or self-care (01) ==
LOC: ER 21:59
DX: K64.9 Unspecified hemorrhoids (principal)
CPT/HCPCS: 99283

== ENCOUNTER 2019-04-01 13:17 | Emergency (ER) | payer SELFPAY ==
--- NOTE | 2019-04-01 13:32 | ER Document Report ---
ED Medical Screen (RME) - General Chief Complaint: Nausea/Vomiting Stated Complaint: FLU LIKE SYMPTOMS Time Seen by Provider: 04/01/19 13:28 Primary Care Provider: SEDRICK MORALES PA [Primary Care Provider] - Follow up as needed Mode of Arrival: Ambulatory Information source: Patient Notes: 28-year-old female presents to ED for complaint of nausea and vomiting since Monday. She states she had a fever on Monday but has not checked her temperature since then. She states she is 8 weeks last menstrual period was 02/18/2019. She states she is 3 para 2. She states that her nausea and vomiting just started Monday with the fever and the chills she had not been having any nausea and vomiting with her . Does not take any routine medications. She states she was smoking 1/2 pack a day and has not smoked any in the last 3 days denies use of drugs or alcohol. Patient is alert oriented respirations regular nonlabored speaking in full sentences. I have greeted and performed a rapid initial assessment of this patient. A comprehensive ED assessment and evaluation of the patient, analysis of test results and completion of medical decision making process will be conducted by an additional ED providers. TRAVEL OUTSIDE OF THE [place] IN LAST 30 DAYS: No - Related Data Allergies/Adverse Reactions: No Known Allergies Allergy (Verified 04/01/19 13:26) Past Medical History - Past Medical History Cardiac Medical History: Denies: Hx Atrial Fibrillation, Hx Congestive Heart Failure, Hx Coronary Artery Disease, Hx DVT, Hx Heart Attack, Hx Hypercholesterolemia, Hx Hypertension, Hx Peripheral Vascular Disease, Hx Pulmonary Embolism, Hx Heart Murmur Pulmonary Medical History: Denies: Hx Asthma, Hx Bronchitis, Hx COPD, Hx Pneumonia, Hx Intubation, Hx Respiratory Failure, Hx Sleep Apnea, Hx Tuberculosis Neurological Medical History: Denies: Hx Cerebrovascular Accident, Hx Migraine, Hx Seizures Endocrine Medical History: Denies: Hx Diabetes Mellitus Type 1, Hx Diabetes Mellitus Type 2, Hx Graves' Disease, Hx Hyperthyroidism, Hx Hypothyroidism Renal/ Medical History: Denies: Hx Peritoneal Dialysis Past Surgical History: Reports: Hx Cardiac Surgery, Hx Gynecologic Surgery - Immunizations Immunizations up to date: Yes Hx Diphtheria, Pertussis, Tetanus Vaccination: Yes Physical Exam - Vital signs Vitals: Temp Pulse Resp BP Pulse Ox 98.0 F 69 16 147/92 H 100 04/01/19 13:20 04/01/19 13:20 04/01/19 13:20 04/01/19 13:20 04/01/19 13:20 Course - Vital Signs Vital signs: Temp Pulse Resp BP Pulse Ox 98.0 F 69 16 147/92 H 100 04/01/19 13:20 04/01/19 13:20 04/01/19 13:20 04/01/19 13:20 04/01/19 13:20 Doctor's Discharge - Discharge Referrals: SEDRICK MORALES PA [Primary Care Provider] - Follow up as needed
[2019-04-01] MEDS ORDERED: METOCLOPRAMIDE HCL 10 MG TABLET PO ONE (13:33)
[2019-04-01 14:16] LABS: ABSOLUTE LYMPHOCYTES (AUTO) 1.7 10^3/uL (0.5-4.7); ABSOLUTE MONOCYTES (AUTO) 0.5 10^3/uL (0.1-1.4); ABSOLUTE NEUT (AUTO) 2.9 10^3/uL (1.7-8.2); BASOPHILS % (AUTO) 0.7 % (0-2); EOSINOPHILS % (AUTO) 0.4 % (0-6); HEMATOCRIT 36.7 % (36.0-47.0); HEMOGLOBIN 12.3 g/dL (12.0-15.5); LYMPHOCYTES % (AUTO) 32.8 % (13-45); MEAN CORPUSCULAR HEMOGLOBIN 26.3 pg (27.0-33.4); MEAN CORPUSCULAR HGB CONC 33.4 g/dL (32.0-36.0); MEAN CORPUSCULAR VOLUME 79 fl (80-97); MONOCYTES % (AUTO) 9.8 % (3-13); PLATELET COUNT 218 10^3/uL (150-450); RED BLOOD COUNT 4.67 10^6/uL (3.72-5.28); RED CELL DISTRIBUTION WIDTH 13.7 % (11.5-14.0); SEGMENTED NEUTROPHILS % (AUTO) 56.3 % (42-78); TOTAL CELLS COUNTED % (AUTO) 100 %; WHITE BLOOD COUNT 5.2 10^3/uL (4.0-10.5)
[2019-04-01 14:24] LABS: APPEARANCE,URINE SLIGHTLY-CLOUDY; BILIRUBIN,URINE NEGATIVE (NEGATIVE); COLOR,URINE YELLOW; GLUCOSE, URINE NEGATIVE (NEGATIVE); KETONES,URINE 20 mg/dL (NEGATIVE); PROTEIN,URINE NEGATIVE (NEGATIVE); URINE SPECIFIC GRAVITY 1.016; UROBILINOGEN,URINE NEGATIVE mg/dL (<2.0)
[2019-04-01 14:35] LABS: ALBUMIN 4.6 g/dL (3.5-5.0); ALKALINE PHOSPHATASE 51 U/L (38-126); ANION GAP 11 (5-19); ASPARTATE AMINO TRANSFERASE 18 U/L (14-36); BILIRUBIN,DIRECT 0.1 mg/dL (0.0-0.4); BILIRUBIN,TOTAL 0.4 mg/dL (0.2-1.3); BLOOD UREA NITROGEN 7 mg/dL (7-20); CARBON DIOXIDE 26 mmol/L (22-30); CHLORIDE 103 mmol/L (98-107); GLUCOSE 87 mg/dL (75-110); POTASSIUM 3.9 mmol/L (3.6-5.0); TOTAL PROTEIN 7.8 g/dL (6.3-8.2)
--- NOTE | 2019-04-01 16:27 | RADIOLOGY REPORT (SQ) ---
EXAM DESCRIPTION: U/S OB TRANSVAGINAL W/O DOP COMPLETED DATE/TIME: 04/01/2019 4:09 pm REASON FOR STUDY: preg/bilat lq pain COMPARISON: None. TECHNIQUE: Transvaginal static and realtime grayscale images acquired of the pelvis. Additional bertram cted spectral and color Doppler images recorded. All images stored on PACs. bHC,000 CLINICAL DATES: 6 weeks 0 days LIMITATIONS: None. FINDINGS: FETUS: Single Living intrauterine . ULTRASOUND EGA: 6 weeks 2 days ULTRASOUND DEMETRIO: 11/23/2019 EFW: Not applicable less than 20 weeks. CRL: 3 mm. FHR: 110 beats per minute. SURVEY: No visualized anomalies. AMNIOTIC FLUID: Adequate amount. PLACENTA: Not yet developed due to early gestation. SUBCHORIONIC BLEED: Yes. SIZE OF BLEED: 4 x 9 mm. UTERUS: No masses. No anomalies. CERVICAL LENGTH: 2.4 cm. Closed. RIGHT ADNEXA: Normal ovary with normal vascular flow. No adnexal free fluid. No adnexal masses. LEFT ADNEXA: Normal ovary with normal vascular flow. No adnexal free fluid. No adnexal masses. FREE FLUID: None. OTHER: No other significant finding. IMPRESSION: LIVING INTRAUTERINE . EGA 6 weeks 2 days. Small subchronic hemorrhage. Trimester of : First trimester - 0 to 13 weeks. TECHNICAL DOCUMENTATION: JOB ID: [id number] [employer]- All Rights Reserved rev Reading location - IP/workstation name: [email or web address]
--- NOTE | 2019-04-01 17:11 | ER Document Report ---
ED General - General Chief Complaint: Nausea/Vomiting Stated Complaint: FLU LIKE SYMPTOMS Time Seen by Provider: 04/01/19 13:28 Primary Care Provider: SEDRICK MORALES PA [Primary Care Provider] - Follow up as needed Mode of Arrival: Ambulatory Information source: Patient TRAVEL OUTSIDE OF THE [place] IN LAST 30 DAYS: No - HPI Notes: Patient presents with complaints of nausea and not feeling well. She states that she is currently . She states for 2 days she is had some fever chills with nausea and vomiting. She states no diarrhea. No rashes. She has no significant past medical history. She states she is never had any surgeries. She states she still does smoke. She states she believes she is about 8 weeks . No dysuria urgency or frequency. No cough cold or congestion. No known tick bite. She states she is had no vaginal discharge or bleeding. No dysuria urgency or frequency. She states that she has some generalized body aches. These are mild in intensity. They are intermittent. They are worse with movement and better with rest. They radiate throughout her body. - Related Data Allergies/Adverse Reactions: No Known Allergies Allergy (Verified 04/01/19 13:26) Past Medical History - General Information source: Patient - Social History Smoking Status: Current Every Day Smoker Chew tobacco use (# tins/day): No Frequency of alcohol use: None Drug Abuse: None Family History: Reviewed & Not Pertinent, CVA, Malignancy Patient has suicidal ideation: No Patient has homicidal ideation: No - Past Medical History Cardiac Medical History: Denies: Hx Atrial Fibrillation, Hx Congestive Heart Failure, Hx Coronary Artery Disease, Hx DVT, Hx Heart Attack, Hx Hypercholesterolemia, Hx Hypertension, Hx Peripheral Vascular Disease, Hx Pulmonary Embolism, Hx Heart Murmur Pulmonary Medical History: Denies: Hx Asthma, Hx Bronchitis, Hx COPD, Hx Pneumonia, Hx Intubation, Hx Respiratory Failure, Hx Sleep Apnea, Hx Tuberculosis Neurological Medical History: Denies: Hx Cerebrovascular Accident, Hx Migraine, Hx Seizures Endocrine Medical History: Denies: Hx Diabetes Mellitus Type 1, Hx Diabetes Mellitus Type 2, Hx Graves' Disease, Hx Hyperthyroidism, Hx Hypothyroidism Renal/ Medical History: Denies: Hx Peritoneal Dialysis Past Surgical History: Reports: Hx Cardiac Surgery, Hx Gynecologic Surgery - Immunizations Immunizations up to date: Yes Hx Diphtheria, Pertussis, Tetanus Vaccination: Yes Review of Systems - Review of Systems Constitutional: Chills, Fever, Malaise, Weakness Cardiovascular: denies: Chest pain, Palpitations Respiratory: denies: Cough, Short of breath -: Yes All other systems reviewed and negative Physical Exam - Vital signs Vitals: Temp Pulse Resp BP Pulse Ox 98.0 F 69 16 147/92 H 100 04/01/19 13:20 04/01/19 13:20 04/01/19 13:20 04/01/19 13:20 04/01/19 13:20 Interpretation: Normal - General General appearance: Appears well, Alert - HEENT Head: Normocephalic, Atraumatic Eyes: Normal Pupils: PERRL - Respiratory Respiratory status: No respiratory distress Chest status: Nontender Breath sounds: Normal Chest palpation: Normal - Cardiovascular Rhythm: Regular Heart sounds: Normal auscultation Murmur: No - Abdominal Inspection: Normal Distension: No distension Bowel sounds: Normal Tenderness: Nontender Organomegaly: No organomegaly - Back Back: Normal, Nontender - Extremities General upper extremity: Normal inspection, Nontender, Normal color, Normal ROM, Normal temperature General lower extremity: Normal inspection, Nontender, Normal color, Normal ROM, Normal temperature, Normal weight bearing. No: Carlos's sign - Neurological Neuro grossly intact: Yes Cognition: Normal Orientation: AAOx4 Gracie Coma Scale Eye Opening: Spontaneous Gracie Coma Scale Verbal: Oriented Gracie Coma Scale Motor: Obeys Commands [place] Coma Scale Total: 15 Speech: Normal Motor strength normal: LUE, RUE, LLE, RLE Sensory: Normal - Psychological Associated symptoms: Normal affect, Normal mood - Skin Skin Temperature: Warm Skin Moisture: Dry Skin Color: Normal Course - Re-evaluation Re-evalutation: 04/01/19 17:10 Patient presents with fever chills some generalized body aches and some thoughts that she may be hydrated. She does not have significant dehydration on exam or laboratories. She has no evidence of infection. She has a normal developing IUP. She was referred to [facility]. - Vital Signs Vital signs: Temp Pulse Resp BP Pulse Ox 98.0 F 69 16 147/92 H 100 04/01/19 13:20 04/01/19 13:20 04/01/19 13:20 04/01/19 13:20 04/01/19 13:20 - Laboratory Result Diagrams: 04/01/19 14:04 04/01/19 14:04 Laboratory results interpreted by me: 04/01/19 04/01/19 04/01/19 14:04 14:04 14:04 MCV 79 L MCH 26.3 L Beta HCG, Quant > 29026.00 H Urine Ketones 20 H Leukocyte Esterase Rfl SMALL H - Diagnostic Test Radiology reviewed: Image reviewed, Reports reviewed Discharge - Discharge Clinical Impression: Hyperemesis gravidarum Condition: Stable Disposition: HOME, SELF-CARE Instructions: Antinausea Medication ([facility]), Vomiting ([facility]), Hyperemesis Gravidarum ([facility]) Additional Instructions: Call your [facility]CRE[facility] TE[facility] as soon as possible for appointment Prescriptions: Metoclopramide HCl [Reglan 10 mg Tablet] 1 tab PO Q6 10 Days #25 tablet Referrals: SEDRICK MORALES PA [Primary Care Provider] - Follow up as needed PATIENCE CAMARGO MD [ACTIVE STAFF] - Follow up in 3-5 days
[2019-04-01 17:28] VITALS: BP 123/86
== END 2019-04-01 17:32 | disposition home or self-care (01) ==
LOC: ER 13:17
DX: O21.0 Mild hyperemesis gravidarum (principal); O26.891 Other specified pregnancy related conditions, first trimester; R50.9 Fever, unspecified; R53.1 Weakness; O26.811 Pregnancy related exhaustion and fatigue, first trimester; F17.200 Nicotine dependence, unspecified, uncomplicated; O99.331 Smoking (tobacco) complicating pregnancy, first trimester; Z3A.01 Less than 8 weeks gestation of pregnancy
CPT/HCPCS: 36415; 76817; 80053; 81001; 84702; 85025; 87086; 99284

== ENCOUNTER 2019-11-23 00:11 | Inpatient (IN) | payer MEDICAID ==
[2019-11-23 01:00] LABS: APPEARANCE,URINE SLIGHTLY-CLOUDY; BILIRUBIN,URINE NEGATIVE (NEGATIVE); COLOR,URINE YELLOW; GLUCOSE, URINE NEGATIVE (NEGATIVE); KETONES,URINE NEGATIVE (NEGATIVE); LEUKOCYTE ESTERASE,URINE NEGATIVE (NEGATIVE); NITRITE,URINE NEGATIVE (NEGATIVE); PROTEIN,URINE NEGATIVE (NEGATIVE); URINE SPECIFIC GRAVITY 1.023; UROBILINOGEN,URINE NEGATIVE mg/dL (<2.0)
[2019-11-23] MEDS ORDERED: OXYTOCIN 10 UNIT/ML VIAL ONE (01:04)
[2019-11-23] MEDS ORDERED: LIDOCAINE 1% INJ-PF (10 MG/ML) 30 ML SDV ONE (01:04)
[2019-11-23] MEDS ORDERED: MISOPROSTOL 0.2 MG TABLET ONE (01:04)
[2019-11-23] MEDS ORDERED: OXYTOCIN/0.9 % SODIUM CHLORIDE 30 UNIT/500 ML RTUINJ ONE (01:05)
[2019-11-23] MEDS: RINGERS SOLUTION,LACTATED 1,000 ML IV PRN ×2 (01:21→02:15)
[2019-11-23 01:31] LABS: ABSOLUTE BASOPHILS # (AUTO) 0.1 10^3/uL (0.0-0.2); ABSOLUTE LYMPHOCYTES (AUTO) 1.1 10^3/uL (0.5-4.7); ABSOLUTE MONOCYTES (AUTO) 0.7 10^3/uL (0.1-1.4); ABSOLUTE NEUT (AUTO) 6.9 10^3/uL (1.7-8.2); BASOPHILS % (AUTO) 0.7 % (0-2); EOSINOPHILS % (AUTO) 0.2 % (0-6); HEMATOCRIT 32.6 % (36.0-47.0); HEMOGLOBIN 10.7 g/dL (12.0-15.5); LYMPHOCYTES % (AUTO) 12.7 % (13-45); MEAN CORPUSCULAR HEMOGLOBIN 26.6 pg (27.0-33.4); MEAN CORPUSCULAR HGB CONC 32.8 g/dL (32.0-36.0); MEAN CORPUSCULAR VOLUME 81 fl (80-97); MONOCYTES % (AUTO) 7.7 % (3-13); PLATELET COUNT 208 10^3/uL (150-450); RED BLOOD COUNT 4.01 10^6/uL (3.72-5.28); RED CELL DISTRIBUTION WIDTH 15.4 % (11.5-14.0); SEGMENTED NEUTROPHILS % (AUTO) 78.7 % (42-78); TOTAL CELLS COUNTED % (AUTO) 100 %; WHITE BLOOD COUNT 8.8 10^3/uL (4.0-10.5)
[2019-11-23] MEDS ORDERED: BUPIVACAINE HCL 0.25 % INJ/PF (2.5 MG/1 ML) 30 ML VIAL ONE (01:44)
[2019-11-23] MEDS ORDERED: FENTANYL/BUPIVACAINE/NS/PF 300 MCG/150 ML RTUINJ EPI ONE (01:44)
[2019-11-23] MEDS ORDERED: EPHEDRINE SULFATE INJ 50 MG/1 ML AMPULE ONE (01:44)
[2019-11-23 02:19] LABS: URINE AMPHETAMINES SCREEN NEGATIVE; URINE BARBITURATES SCREEN NEGATIVE; URINE BENZODIAZEPINES SCREEN NEGATIVE; URINE COCAINE SCREEN NEGATIVE; URINE MARIJUANA (THC) SCREEN NEGATIVE; URINE METHADONE SCREEN NEGATIVE; URINE PHENCYCLIDINE SCREEN NEGATIVE
--- NOTE | 2019-11-23 06:09 | Admission Physical ---
Datetime Report Generated by CPN: 11/23/2019 06:09 CURRENT ADMISSION Chief Complaint: Uterine Contractions; Suspected Ruptured Membranes Indication for Induction: Not Applicable Admit Impression : Term, Intrauterine ; Active Labor Admit Plan: Admit to Unit ALLERGIES Medication Allergies: No Medication Allergies: No Known Allergies (11/23/2019) Latex: No Latex Allergies OBSTETRICAL HISTORY EDC: 11/25/2019 00:00 : 4 Para: 2 Term: 2 : 0 SAB: 0 IAB: 1 Livin Gestational Diabetes: No Rh Sensitization: No Incompetent Cervix: No KANE: No Infertility: No ART Treatment: No Uterine Anomaly: No IUGR: No Hx Previous C/S: No Macrosomia: No Hx Loss/Stillborn: No PIH: No Hx : No Placenta Previa/Abruption: No Depression/PP Depression: No PTL/PROM: No Post Hemorrhage: No Current Procedures: Ultrasound Obstetrical History Comments: G1: 2011, , female @ 39.5, 7 # 4 oz. G2: 2014, , female @ 38, 8# G3: 2019, _4 weeks, no complications G4: current SEE RECORDS Alcohol: No Marijuana : No Cocaine: No Other Illicit Drugs: No Cigarettes: Former Smoker. 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 Surgery: No Heart Disease: No Hosp/Surgery: Yes Autoimmune Disorder: No Anesthetic Complications: No Kidney Disease: No Abnormal Pap Smear: No Neuro/Epilepsy: No Psychiatric Disorders: No Other Medical Diseases: No Hepatitis/Liver Disease: No Significant Family History: No Varicosities/Phlebitis: No Trauma/Violence : No Thyroid Dysfunction: No INFECTIOUS HISTORY Gonorrhea: No Genital Herpes: No Chlamydia: No Tuberculosis: No Syphilis: No Hepatitis: No HIV/AIDS Exposure: No Rash or Viral Illness: No HPV: No PHYSICAL EXAM General: Normal HEENT: Normal Neurologic: Normal Thyroid: Normal Heart: Normal Lungs: Normal Breast: Normal Back: Normal Abdomen: Normal Genitourinary Exam: Normal Extremities: Normal DTRs: Normal Pelvic Type: Adequate Vital Signs: Reviewed VAGINAL EXAM Dilatation: 2 Effacement: 80 Station: -1 MEMBRANES Pooling: Positive Membranes: Ruptured FETUS A EGA: 39.5 Monitoring: External US FHR- Baseline: 140 Variability: Moderate 6-25bpm Accelerations: 15X15 Decelerations: None FHR Category: Category I Estimated Weight (gm): 3500 Presentation: Vertex PLANS FOR LABOR AND DELIVERY Labor and Delivery: None Pain Management: Epidural Feeding Preference: Breast Benefit of Breast Feed Discussed: Yes Circumcision: Yes INFORMED CONSENT Signature: with User ID: [email or web address]
--- NOTE | 2019-11-23 06:10 | Warning Signs in Babies ---
VOD Warning Signs Datetime Report Generated by [facility]: 11/23/2019 06:10 VOD#608 -Warning Signs in Babies: Needs to be viewed. (11/23/2019 00:10:Va Arana RN)
[2019-11-23] MEDS ORDERED: GLYCERIN/WITCH HAZEL LEAF 1 EACH MED..WIPE TP PRN (06:12)
[2019-11-23] MEDS ORDERED: BENZOCAINE/MENTHOL AEROSOL SPRAY 56 ML TOP PRN (06:12)
[2019-11-23] MEDS ORDERED: PROMETHAZINE HCL INJ 25 MG/1 ML VIAL IV PRN (06:12)
[2019-11-23] MEDS ORDERED: PROMETHAZINE HCL 25 MG TABLET PO PRN (06:12)
[2019-11-23] MEDS ORDERED: DIBUCAINE 1% OINTMENT 28 GM TP PRN (06:12)
[2019-11-23] MEDS ORDERED: OXYTOCIN/0.9 % SODIUM CHLORIDE 30 UNIT/500 ML RTUINJ IV PRN (06:12)
[2019-11-23] MEDS ORDERED: ACETAMINOPHEN 325 MG TABLET PO PRN (06:12)
[2019-11-23] MEDS ORDERED: DIPHENHYDRAMINE HCL 25 MG CAPSULE PO PRN (06:12)
[2019-11-23] MEDS ORDERED: ZOLPIDEM TARTRATE 5 MG TABLET PO PRN (06:12)
[2019-11-23] MEDS ORDERED: MEASLES,MUMPS&RUBELLA VACC/PF 0.5 ML VIAL SUBCUT PRN (06:12)
[2019-11-23] MEDS ORDERED: ACETAMINOPHEN WITH CODEINE #3 TABLET PO PRN ×2 (06:12)
[2019-11-23] MEDS ORDERED: DIPH/PERTUSS(ACELL)/TETANUS VAC/PF 0.5 ML SYR (>=10YO) IM PRN (06:12)
[2019-11-23] MEDS ORDERED: NA PHOS,M-B/NA PHOS,DI-BA (ADULT) 133 ML ENEMA PR PRN (06:12)
[2019-11-23] MEDS ORDERED: PROMETHAZINE HCL 25 MG SUPP.RECT PR PRN (06:12)
[2019-11-23] MEDS ORDERED: ACETAMINOPHEN 650 MG SUPP.RECT PR PRN (06:12)
[2019-11-23] MEDS ORDERED: PSEUDOEPHEDRINE HCL 30 MG TABLET PO PRN (06:12)
[2019-11-23] MEDS ORDERED: MAGNESIUM HYDROXIDE SUSP 30 ML UDCUP PO PRN (06:12)
--- NOTE | 2019-11-23 07:01 | Delivery Summary ---
Del Sum A-C Datetime Report Generated by CPN: 11/23/2019 07:01 DELIVERY PERSONNEL DELIVERY PERSONNEL: [id number] Delivery Doctor:: Albania Kenney MD Labor and Delivery Nurse:: Va Arana, project inspector Nurse:: Emmy Langston RN Rn Patient Services/FURNITURE DUSTER: Ettayvon Locke, ST MATERNAL INFORMATION Delivery Anesthesia: Epidural Medications After Delivery: Pitocin 30 Units in 500ml NS/D5W Delivery QBL: 50 Maternal Complications: None LABOR SUMMARY EDC: 11/25/2019 00:00 No. Babies in Womb: 1 Attempted: No Labor Anesthesia: Epidural LABOR INFORMATION Reason for Induction: Not Applicable Onset of Labor: 11/22/2019 23:30 Complete Dilatation: 11/23/2019 05:03 Oxytocin: N/A Group B Beta Strep: Negative Antibiotics # of Doses: 0 Steroids Given: None Reason Steroids Not Administered: Not Applicable MEMBRANES Membranes Rupture Method: Spontaneous Rupture of Membranes: 11/22/2019 23:30 Length of Rupture (hr): 5.95 Amniotic Fluid Color: Clear Amniotic Fluid Amount: Moderate Amniotic Fluid Odor: Normal STAGES OF LABOR Stage 1 hr: 5 Stage 1 min: 33 Stage 2 hr: 0 Stage 2 min: 24 Stage 3 hr: 0 Stage 3 min: 3 Total Time in Labor hr: 6 Total Time in Labor min: 0 VAGINAL DELIVERY Episiotomy: None Laceration #1: None Laceration Extension #1: N/A Laceration Repair: Not Applicable Sponge Count Correct: Yes Sharps Count Correct: Yes CSECTION DELIVERY Primary Indication: N/A Secondary Indication: N/A CSection Incidence: N/A Labor: N/A Elective: N/A CSection Incision: N/A BABY A INFORMATION Infant Delivery Date/Time: 11/23/2019 05:27 Method of Delivery: Vaginal Nurse Controlled Delivery: No Born in Route : No : N/A Forceps: N/A Vacuum Extraction: N/A Shoulder Dystocia : No PRESENTATION/POSITION BABY A Presentation: Cephalic Cephalic Presentation: Vertex Vertex Position: Left Occipital Anterior Breech Presentation: N/A PLACENTA INFORMATION BABY A Placenta Delivery Time : 11/23/2019 05:30 Placenta Method of Delivery: Spontaneous Placenta Status: Delivered SCORES BABY A Heart Rate 1 min: >100 bpm Resp Effort 1 min: Good Cry Reflex Irritability 1 min: Cough or Sneeze or Pulls Away Muscle Tone 1 min: Active Motion Color 1 min: Blue/Pale SCORE 1 MIN: 8 Heart Rate 5 min: >100 bpm Resp Effort 5 min: Good Cry Reflex Irritability 5 min: Cough or Sneeze or Pulls Away Muscle Tone 5 min: Active Motion Color 5 min: Body [place], Extremities Blue SCORE 5 MIN: 9 INFORMATION BABY A Gestational Age at Delivery: 39.5 Gestational Status: Full Term- 39- 40.6 Weeks Outcome : Liveborn Condition : Stable Sex: Male IDENTIFICATION BABY A Infant Verification Date/Time: 11/23/2019 05:33 ID Band Number: [id number] Mother's Name Verified: Yes RN Verifying Infant: rn lakhwinder and rn eliud WEIGHT/LENGTH BABY A Infant Birthweight (gm): 3360 Weight (lb): 7 Weight (oz): 7 Length (in): 20.00 Length (cm): 50.80 CORD INFORMATION BABY A No. Cord Vessels: 3 Nuchal Cord : N/A Cord Blood Taken: Yes-For Eval (Mom's Blood Type - or O+) Infant Suction: Mouth; Nose ASSESSMENT BABY A Infant Complications: None Physical Findings at Delivery: Within Normal Limits Physical Findings- Other: See full nursery chief accountant Infant Respirations: Appears Normal Skin to Skin: Yes Cow Tester/ALS Called : No Care By: Lisa Langston RN Transferred To: Remains with Mother BABY B INFORMATION : N/A
--- NOTE | 2019-11-23 08:17 | Warning Signs in Babies ---
VOD Warning Signs Datetime Report Generated by [facility]: 11/23/2019 08:16 VOD#608 -Warning Signs in Babies: Viewed with Parent(s)/Family (11/23/2019 08:16:Carla Preston RN)
[2019-11-23] MEDS ORDERED: PRENATAL VITAMIN W DHA CAPSULE PO ONE (09:08)
[2019-11-23] MEDS ORDERED: FAMOTIDINE 20 MG TABLET ONE (09:09)
[2019-11-23] MEDS ORDERED: SENNOSIDES/DOCUSATE 8.6-50 MG 1 EACH TABLET ONE (09:09)
[2019-11-23] MEDS ORDERED: FERROUS SULFATE 325 MG TABLET PO ONE (09:10)
[2019-11-23] MEDS ORDERED: DOCUSATE SODIUM 100 MG CAPSULE ONE ×2 (09:10→09:19)
[2019-11-23] MEDS: SENNOSIDES/DOCUSATE 8.6-50 MG 1 EACH TABLET PO SCH (09:13)
[2019-11-23] MEDS: FERROUS SULFATE 325 MG TABLET PO SCH ×2 (09:17→17:20)
[2019-11-23] MEDS: FAMOTIDINE 20 MG TABLET PO SCH ×2 (09:17→21:02)
[2019-11-23] MEDS: PRENATAL VITAMIN W DHA CAPSULE PO SCH (09:20)
[2019-11-23] MEDS: DOCUSATE SODIUM 100 MG CAPSULE PO SCH ×2 (09:22→17:20)
[2019-11-23] MEDS: IBUPROFEN 800 MG TABLET PO SCH ×2 (14:11→21:02)
[2019-11-24] MEDS: IBUPROFEN 800 MG TABLET PO SCH ×3 (05:19→21:17)
[2019-11-24 07:01] LABS: HEMATOCRIT 29.1 % (36.0-47.0); HEMOGLOBIN 9.9 g/dL (12.0-15.5); MEAN CORPUSCULAR HEMOGLOBIN 27.6 pg (27.0-33.4); MEAN CORPUSCULAR HGB CONC 34.1 g/dL (32.0-36.0); MEAN CORPUSCULAR VOLUME 81 fl (80-97); PLATELET COUNT 183 10^3/uL (150-450); RED CELL DISTRIBUTION WIDTH 15.4 % (11.5-14.0); WHITE BLOOD COUNT 9.5 10^3/uL (4.0-10.5)
--- NOTE | 2019-11-24 09:55 | PDOC PROGRESS REPORT ---
Subjective-OB Progress Note for:: 11/24/19 - PP Day #1, doing well, desires to go home later on today if possible, unsure if baby will be discharged though. UOB, voiding, O+, Rubella immune, breast and bottlefeeding Physical Exam (OB) Vital Signs: Temp Pulse Resp BP Pulse Ox 97.9 F 61 16 130/76 H 100 11/24/19 08:30 11/24/19 08:30 11/24/19 08:30 11/24/19 08:30 11/23/19 20:13 Intake & Output 11/23/19 11/24/19 11/25/19 06:59 06:59 06:59 Intake Total 1000 Balance 1000 Weight 91 kg - General General Appearance: Appears well, Alert In distress: None - PIH/Pre-Eclampsia Headache: Absent Epigastric Pain: No Visual Changes: No - Lochia Lochia Amount: Small 10-25 ml Lochia Color: Rubra/Red - Abdomen Description: Soft, Round Hernia Present: No Fundal Description: Firm, Midline Fundal Height: u/u - u/2 - Respiratory Respiratory Status: No respiratory distress - Abdominal Distension: No distension - Genitourinary Genitourinary Note: voiding - Extremities Upper extremity: Normal inspection Lower extremities: Normal inspection - Neurological Cognition: Normal Orientation: AAOx4 - Psychological Associated symptoms: Normal affect, Normal mood - Skin Skin Temperature: Warm Skin Moisture: Dry Objective-Diagnostic Laboratory: 11/24/19 06:32 11/24/19 06:32 WBC 9.5 RBC 3.60 L Hgb 9.9 L Hct 29.1 L MCV 81 MCH 27.6 MCHC 34.1 RDW 15.4 H Plt Count 183 Assessment and Plan(PN) Plan:: Routine PP orders, ambulation encouraged. May d/c home later on today if possible - Time Spent with Patient Time with patient: Less than 15 minutes Medications reviewed and adjusted accordingly: Yes - Disposition Anticipated Discharge: Home Within: within 24 hours
[2019-11-24] MEDS: PRENATAL VITAMIN W DHA CAPSULE PO SCH (10:23)
[2019-11-24] MEDS: FAMOTIDINE 20 MG TABLET PO SCH ×2 (10:23→21:17)
[2019-11-24] MEDS: SENNOSIDES/DOCUSATE 8.6-50 MG 1 EACH TABLET PO SCH (10:24)
[2019-11-24] MEDS: DOCUSATE SODIUM 100 MG CAPSULE PO SCH ×2 (10:24→17:23)
[2019-11-24] MEDS: FERROUS SULFATE 325 MG TABLET PO SCH ×2 (10:24→17:23)
[2019-11-24 19:35] VITALS: BP 141/75
[2019-11-25] MEDS: IBUPROFEN 800 MG TABLET PO SCH (05:59)
--- NOTE | 2019-11-25 09:12 | PDOC DISCHARGE SUMMARY ---
Impression - Admit/DC Date/PCP Admission Date/Primary Care Provider: 11/23/19 01:03 Discharge Date: 11/25/19 - Discharge Diagnosis (1) Normal course Is this a current diagnosis for this admission?: Yes (2) Vaginal delivery Is this a current diagnosis for this admission?: Yes - Additional Information Resuscitation Status: Full Code Discharge Diet: As Tolerated, Regular Discharge Activity: Activity As Tolerated, Pelvic Rest Prescriptions: Ibuprofen [Motrin 800 mg Tablet] 800 mg PO Q8 #60 tablet Home Medications: Ferrous Gluconate [Iron] 256 mg PO DAILY 11/23/19 Vits96/Iron Fum/Folic [ Tablet] 1 each PO DAILY 11/23/19 Ibuprofen [Motrin 800 mg Tablet] 800 mg PO Q8 #60 tablet 11/24/19 HPI Gestational Age: 39.5 Reason(s) for Admission: Onset of Labor Procedures: NST Intrapartum Procedure(s): Spontaneous Vaginal Delivery Results Laboratory Results: WBC 9.5 10^3/uL (4.0-10.5) 11/24/19 06:32 RBC 3.60 10^6/uL (3.72-5.28) L 11/24/19 06:32 Hgb 9.9 g/dL (12.0-15.5) L 11/24/19 06:32 Hct 29.1 % (36.0-47.0) L 11/24/19 06:32 MCV 81 fl (80-97) 11/24/19 06:32 MCH 27.6 pg (27.0-33.4) 11/24/19 06:32 MCHC 34.1 g/dL (32.0-36.0) 11/24/19 06:32 RDW 15.4 % (11.5-14.0) H 11/24/19 06:32 Plt Count 183 10^3/uL (150-450) 11/24/19 06:32 Lymph % (Auto) 12.7 % (13-45) L 11/23/19 01:21 Carter % (Auto) 7.7 % (3-13) 11/23/19 01:21 Eos % (Auto) 0.2 % (0-6) 11/23/19 01:21 Baso % (Auto) 0.7 % (0-2) 11/23/19 01:21 Absolute Neuts (auto) 6.9 10^3/uL (1.7-8.2) 11/23/19 01:21 Absolute Lymphs (auto) 1.1 10^3/uL (0.5-4.7) 11/23/19 01:21 Absolute Monos (auto) 0.7 10^3/uL (0.1-1.4) 11/23/19 01:21 Absolute Eos (auto) 0.0 10^3/uL (0.0-0.6) 11/23/19 01:21 Absolute Basos (auto) 0.1 10^3/uL (0.0-0.2) 11/23/19 01:21 Seg Neutrophils % 78.7 % (42-78) H 11/23/19 01:21 Urine Color YELLOW 11/23/19 00:22 Urine Appearance SLIGHTLY-CLOUDY 11/23/19 00:22 Urine pH 7.0 (5.0-9.0) 11/23/19 00:22 Ur Specific [place] 1.023 11/23/19 00:22 Urine Protein NEGATIVE mg/dL (NEGATIVE) 11/23/19 00:22 Urine Glucose (UA) NEGATIVE mg/dL (NEGATIVE) 11/23/19 00:22 Urine Ketones NEGATIVE mg/dL (NEGATIVE) 11/23/19 00:22 Urine Blood NEGATIVE (NEGATIVE) 11/23/19 00:22 Urine Nitrite NEGATIVE (NEGATIVE) 11/23/19 00:22 Urine Bilirubin NEGATIVE (NEGATIVE) 11/23/19 00:22 Urine Urobilinogen NEGATIVE mg/dL (<2.0) 11/23/19 00:22 Ur Leukocyte Esterase NEGATIVE (NEGATIVE) 11/23/19 00:22 Urine Ascorbic Acid 40 (NEGATIVE) H 11/23/19 00:22 Membranes Rupture POSITIVE (NEGATIVE) H 11/23/19 00:22 Urine Opiates Screen NEGATIVE 11/23/19 00:22 Urine Methadone Screen NEGATIVE 11/23/19 00:22 Ur Barbiturates Screen NEGATIVE 11/23/19 00:22 Ur Phencyclidine Scrn NEGATIVE 11/23/19 00:22 Ur Amphetamines Screen NEGATIVE 11/23/19 00:22 U Benzodiazepines Scrn NEGATIVE 11/23/19 00:22 Urine Cocaine Screen NEGATIVE 11/23/19 00:22 U Marijuana (THC) Screen NEGATIVE 11/23/19 00:22 RPR NONREACTIVE (NONREACTIVE) 11/23/19 01:21 Blood Type O POSITIVE 11/23/19 01:21 Antibody Screen NEGATIVE 11/23/19 01:21 Plan Plan of Treatment: f/u at [facility] 4 wks Time Spent: Less than 30 Minutes
[2019-11-25] MEDS: FAMOTIDINE 20 MG TABLET PO SCH (10:48)
[2019-11-25] MEDS: DOCUSATE SODIUM 100 MG CAPSULE PO SCH (10:48)
[2019-11-25] MEDS: SENNOSIDES/DOCUSATE 8.6-50 MG 1 EACH TABLET PO SCH (10:48)
[2019-11-25] MEDS: PRENATAL VITAMIN W DHA CAPSULE PO SCH (10:48)
[2019-11-25] MEDS: FERROUS SULFATE 325 MG TABLET PO SCH (10:48)
== END 2019-11-25 11:52 | disposition home or self-care (01) | DRG 807 ==
LOC: LC 00:11 → LR 01:03 → 2S 09:30
PROVIDERS: ADMIT Obstetrics & Gynecology; ATTEND Obstetrics & Gynecology
PROC: 10E0XZZ Delivery of Products of Conception, External Approach (ICD-10-PCS; principal; 2019-11-23)
DX: O80 Encounter for full-term uncomplicated delivery (principal); Z37.0 Single live birth
CPT/HCPCS: 1967; 36415; 80307; 81005; 84112; 85025; 85027; 86592; 86850; 86900; 86901; 94760; J2590; J3010; J3490